=== PATIENT | male | born 1955 | race Caucasian/White ===

== ENCOUNTER 2016-12-03 23:41 | Inpatient (IN) | payer SELFPAY ==
[~2016-12-03] VITALS: Ht 177.8 cm; Wt 95.0 kg
[~2016-12-03 23:41] MED LIST: CYCL1TAB29 PO; DICL75TA PO
[2016-12-03 23:43] VITALS: O2SAT 93; O2SAT 95
[2016-12-03 23:53] VITALS: BP 45/21; PULSE 90
[2016-12-04] VITALS (34 sets, daily range): BP systolic 99–182; BP diastolic 57–107; PULSE 72–101; RESP 16–18; TEMP 97.2–99.1; O2SAT 85–100
[2016-12-04] MEDS ORDERED: EPINEPHrine HCL (1:10,000) 1 MG/10 ML SYRINGE ONE ×3 (00:06→00:16)
--- NOTE | 2016-12-04 00:57 | PD ---
HPI Chief Complaint: Code Blue Time Seen by Provider: 00:50 Travel History International Travel<30 days: No Contact w/Intl Traveler<30days: No Traveled to known affect area: No History of Present Illness HPI Patient is a 61 year old male BIBEMS after collapsing tonight. Per EMS, he was singing karaoke when he suddenly collapsed and was found to be in cardiac arrest. EMS reports that he was down 5-10 minutes prior to their arrival. They performed CPR, gave him epi and amiodarone, and defibrillated him 4 times. He regained a pulse on the way into the emergency department. Per EMS as was total down time of 30 minutes. Bystanders did not know any medical history. Patient is unresponsive and intubated, cannot provide any history. PFS Past Medical History Immunizations Current: No Social History Alcohol Use: No Tobacco Use: Yes Substance Use: No Allergies-Medications (Allergen,Severity, Reaction): Coded Allergies: Penicillin (Verified Allergy, Severe, Anaphylaxis, 09/16/16) Reported Meds & Prescriptions Reported Meds & Active Scripts Active Flexeril (Cyclobenzaprine HCl) 10 Mg Tab 10 Mg PO TID Diclofenac Sodium DR (Diclofenac Sodium) 75 Mg Tabdr 75 Mg PO BID Review of Systems ROS Limitations: Intubated, Unresponsive Physical Exam Exam Limitations: Clinical Condition Narrative GENERAL: Intubated, unresponsive SKIN: Warm and dry. HEAD: Atraumatic. Normocephalic. EYES: Pupils fixed and dilated. ENT: No nasal bleeding or discharge. Mucous membranes pink and moist. NECK: Trachea midline. No JVD. CARDIOVASCULAR: Absent pulse RESPIRATORY: Clear to auscultation. Breath sounds equal bilaterally. GASTROINTESTINAL: Abdomen soft, nondistended. MUSCULOSKELETAL: No obvious deformities. No clubbing. No cyanosis. No edema. NEUROLOGICAL: Intubated, unresponsive, no spontaneous movement. Data Data Last Documented VS Vital Signs Date Time Temp Pulse Resp B/P Pulse Ox O2 Delivery O2 Flow Rate FiO2 12/04/16 01:30 90 16 114/90 97 Ventilator 100 12/03/16 23:43 15.00 Orders Epinephrine (1:10,000) Inj (Epinephrine (12/04/16 00:00) Epinephrine (1:10,000) Inj (Epinephrine (12/04/16 00:06) Epinephrine (1:10,000) Inj (Epinephrine (12/04/16 00:16) Chest, Single Ap (12/04/16 ) Amiodarone Inj (Cordarone Inj) (12/04/16 01:15) Complete Blood Count With Diff (12/04/16 00:51) Comprehensive Metabolic Panel (12/04/16 00:51) Prothrombin Time / Inr (Pt) (12/04/16 00:51) Act Partial Throm Time (Ptt) (12/04/16 00:51) Lactic Acid Sepsis Protocol (12/04/16 00:51) Magnesium (Mg) (12/04/16 00:51) Phosphorus (Po4) (12/04/16 00:51) Ckmb (Isoenzyme) Profile (12/04/16 00:51) Troponin I (12/04/16 00:51) Urinalysis - C+S If Indicated (12/04/16 00:51) Blood Culture (12/04/16 00:51) Ecg Monitoring (12/04/16 00:51) Iv Access Insert/Monitor (12/04/16 00:51) Oximetry (12/04/16 00:51) Oxygen Administration (12/04/16 00:51) Urinary Catheter Insert/Apply (12/04/16 00:51) Ct Brain W/O Iv Contrast(Rout) (12/04/16 ) Drug Screen, Random Urine (12/04/16 00:51) Tylenol (Acetaminophen) (12/04/16 00:51) Salicylates (Aspirin) (12/04/16 00:51) Alcohol (Ethanol) (12/04/16 00:51) Norepinephrine-Dextrose Drip (Levophed-D (12/04/16 01:00) Resp Ventilation- Volume (12/04/16 ) Neurological Rass Scale Q30MX2,Q2HX4,Q4H (12/04/16 01:33) Fentanyl Drip (Fentanyl Drip) (12/04/16 01:45) Midazolam Inj (Versed Inj) (12/04/16 01:45) Neurological Rass Scale Q30MX2,Q2HX4,Q4H (12/04/16 01:33) Admit Order (Ed Use Only) (12/04/16 ) CKMB (12/04/16 01:25) CKMB% (12/04/16 01:25) Labs Laboratory Tests Test 12/04/16 12/04/16 01:25 01:35 White Blood Count 24.7 TH/MM3 Red Blood Count 4.27 MIL/MM3 Hemoglobin 13.0 GM/DL Hematocrit 39.8 % Mean Corpuscular Volume 93.2 FL Mean Corpuscular Hemoglobin 30.6 PG Mean Corpuscular Hemoglobin 32.8 % Concent Red Cell Distribution Width 13.5 % Platelet Count 212 TH/MM3 Mean Platelet Volume 8.5 FL Neutrophils (%) (Auto) 75.4 % Lymphocytes (%) (Auto) 22.1 % Monocytes (%) (Auto) 1.3 % Eosinophils (%) (Auto) 0.8 % Basophils (%) (Auto) 0.4 % Neutrophils # (Auto) 18.6 TH/MM3 Lymphocytes # (Auto) 5.5 TH/MM3 Monocytes # (Auto) 0.3 TH/MM3 Eosinophils # (Auto) 0.2 TH/MM3 Basophils # (Auto) 0.1 TH/MM3 CBC Comment AUTO DIFF Differential Total Cells 100 Counted Neutrophils % (Manual) 55 % Band Neutrophils % 13 % Lymphocytes % 26 % Monocytes % 1 % Eosinophils % 1 % Neutrophils # (Manual) 17.8 TH/MM3 Metamyelocytes 2 % Myelocytes 2 % Differential Comment FINAL DIFF MANUAL Platelet Estimate NORMAL Platelet Morphology Comment NORMAL Red Cell Morphology Comment NORMAL Prothrombin Time 11.8 SEC Prothromb Time International 1.1 RATIO Ratio Activated Partial 27.1 SEC Thromboplast Time Urine Color YELLOW Urine Turbidity HAZY Urine pH 5.5 Urine Specific Victor 1.021 Urine Protein 30 mg/dL Urine Glucose (UA) NEG mg/dL Urine Ketones NEG mg/dL Urine Occult Blood MOD Urine Nitrite NEG Urine Bilirubin NEG Urine Urobilinogen LESS THAN 2.0 MG/DL Urine Leukocyte Esterase NEG Urine RBC 12 /hpf Urine WBC 9 /hpf Urine Amorphous Sediment RARE Urine Mucus FEW /lpf Urine Sperm FEW Microscopic Urinalysis Comment CATH-CULTURE IND Sodium Level 144 MEQ/L Potassium Level 3.7 MEQ/L Chloride Level 106 MEQ/L Carbon Dioxide Level 17.8 MEQ/L Anion Gap 20 MEQ/L Blood Urea Nitrogen 20 MG/DL Creatinine 1.99 MG/DL Estimat Glomerular Filtration 35 ML/MIN Rate Random Glucose 359 MG/DL Lactic Acid Level 9.9 mmol/L Calcium Level 8.0 MG/DL Phosphorus Level 8.3 MG/DL Magnesium Level 3.6 MG/DL Total Bilirubin 0.3 MG/DL Aspartate Amino Transf 488 U/L (AST/SGOT) Alanine Aminotransferase 458 U/L (ALT/SGPT) Alkaline Phosphatase 72 U/L Total Creatine Kinase 895 U/L Creatine Kinase MB 28.7 NG/ML Creatine Kinase MB % 3.2 % Troponin I 5.28 NG/ML Total Protein 5.5 GM/DL Albumin 2.7 GM/DL Salicylates Level 3.2 MG/DL Urine Opiates Screen NEG Acetaminophen Level 2.1 MCG/ML Urine Barbiturates Screen NEG Urine Amphetamines Screen NEG Urine Benzodiazepines Screen NEG Urine Cocaine Screen NEG Urine Cannabinoids Screen POS Ethyl Alcohol Level LESS THAN 3 MG/DL Blood Gas Puncture Site LT FEMORAL Blood Gas Patient Temperature 98.6 Blood Gas HCO3 15 mmol/L Blood Gas Base Excess -10.0 mmol/L Blood Gas Oxygen Saturation 94 % Arterial Blood pH 7.28 Arterial Blood Partial 34 mmHg Pressure CO2 Arterial Blood Partial 179 mmHG Pressure O2 Arterial Blood Oxygen Content 18.6 Vol % Arterial Blood 2.6 % Carboxyhemoglobin Arterial Blood Methemoglobin 2.2 % Blood Gas Hemoglobin 13.8 G/DL Oxygen Delivery Device VENT Blood Gas Ventilator Setting VAC16/550/PEEP8 Blood Gas Inspired Oxygen 100 % [facility] Medical Decision Making Medical Screen Exam Complete: Yes Emergency Medical Condition: Yes Medical Record Reviewed: Yes Interpretation(s) ECG shows sinus rhythm with PVCs. There is ST depression in V3 through V5. No ST elevation Differential Diagnosis STEMI versus sepsis versus electrolyte abnormality versus dysrhythmia Narrative Course Patient is a 61-year-old male brought in by EMS after suffering cardiac arrest. Patient had a sudden collapse witnessed at a bar, 5-10 minutes prior to EMS arrival. He was in V. fib arrest the entire time. He received 4 different ablations, 6 doses of epinephrine as well as 2 doses of amiodarone, as well as 100 mEq of bicarbonate by EMS. Pulses returned on the way into the emergency department, this was about 30 minutes after his a initial arrest. As patient was being transferred to the bed, he lost his pulse again. CPR was immediately resumed, lucas patient was in V. fib arrest, defibrillator was charged and patient was defibrillated. ACLS protocols were continued. Patient was given 7 doses of epinephrine and remained in V. tach/V. fib. He also received 1 g of calcium, 2 g of magnesium, an amp of bicarbonate. He he was defibrillated 4 times with return of pulse at 11:59 PM, 16 minutes after he lost pulses were the second time. At 0001 he lost his pulse for the third time. Again he was in V. fib, CPR was begun as a defibrillator was charged. He was shocked immediately and ACLS was continued. Patient received another 6 doses of epinephrine and was defibrillated and additional 5 times as he was in V. fib. He regained pulses 16 minutes later at 0017. He was immediately started on the Levaquin drip as well as an amiodarone drip. Central line is started in the right IJ. Patient was intubated by EMS, tube was confirmed to be in the right place. Labs sent show no elevated troponin, lactic acid is 9.9. OG tube was placed. Patient appeared to have coffee-ground emesis through the OG tube, which then turned to red blood. He was started on Protonix. CT of the head was ordered. Patient covered with cefepime and vancomycin. Dr. Taylor of cardiology consulted. Patient admitted to the ICU for further management. Critical Care Narrative Aggregate critical care time was 60 minutes. Time to perform other separately billable procedures was not included in the critical care time. My time did not include minutes spent treating any other patients simultaneously or on activities that did not directly contribute to the patient's treatment. The services I provided to this patient were to treat and/or prevent clinically significant deterioration that could result in: Serious illness or I provided critical care services requiring my management, as noted below: Chart data review, documentation time, medication orders and management, vital sign assessments/reviewing monitor data, ordering and reviewing lab tests, ordering and interpreting/reviewing x-rays and diagnostic studies, care of the patient and discussion of the patient with the admitting physicians. Procedures Procedure Narrative CENTRAL VENOUS LINE: The site was prepped with Betadine and sterilely draped. It was infiltrated with 1% lidocaine plain. The deep vein was cannulated using normal Seldinger technique. A triple lumen central line was placed in the right internal jugular site and secured with simple interrupted suture. The site was sterilely dressed. The patient tolerated the procedure well. Diagnosis Primary Impression: Cardiac arrest Admitting Information Admitting Physician Requests: it Adela Kelly MD Dec 04, 2016 00:57
[2016-12-04] MEDS ORDERED: NOREPINEPHRINE-DEXTROSE DRIP 250 ML IV SCH (01:00)
[2016-12-04] MEDS ORDERED: AMIODARONE INJ 450 MG in DEXTROSE 5% IN WATE(EXCEL) INJ 250 ML IV SCH ×2 (01:15)
[2016-12-04 01:39] LABS: AUTOMATED NEUTROPHIL # 18.6 TH/MM3 (1.8-7.7); BASOPHIL # 0.1 TH/MM3 (0-0.2); BASOPHIL % 0.4 % (0.0-2.0); EOSINOPHIL # 0.2 TH/MM3 (0-0.4); EOSINOPHIL % 0.8 % (0.0-4.0); HEMATOCRIT 39.8 % (39.0-51.0); LYMPH % 22.1 % (9.0-44.0); LYMPHOCYTE # 5.5 TH/MM3 (1.0-4.8); MEAN CELL VOLUME 93.2 FL (80.0-100.0); MEAN CORPUSCULAR HEMOGLOBIN 30.6 PG (27.0-34.0); MEAN CORPUSCULAR HGB CONC 32.8 % (32.0-36.0); MONO % 1.3 % (0.0-8.0); NEUT % 75.4 % (16.0-70.0); PLATELET COUNT 212 TH/MM3 (150-450); RED BLOOD COUNT 4.27 MIL/MM3 (4.50-5.90); RED CELL DISTRIBUTION WIDTH 13.5 % (11.6-17.2); WHITE BLOOD COUNT 24.7 TH/MM3 (4.0-11.0)
[2016-12-04 01:43] LABS: HEMO FLAGS AUTO DIFF
--- NOTE | 2016-12-04 01:43 | RADRPT ---
EXAM DATE/TIME: 12/04/2016 00:56 [facility] COMPARISON: No previous studies available for comparison. INDICATIONS : Cardiac alert. Unresponsive. MEDICAL HISTORY : None. SURGICAL HISTORY : None. ENCOUNTER: Initial ACUITY: 1 day PAIN SCORE: Non-responsive. LOCATION: Bilateral chest FINDINGS: Right central line tip in superior vena cava. Endotracheal tube in satisfactory position. NG enters s tomach. Minimal basilar dependent airspace disease in lungs. No effusion. No pneumothorax. CONCLUSION: 1. Support apparatus in satisfactory position. Probable dependent atelectasis in the lungs. Chris Medeiros MD on December 04, 2016 at 1:39 Board Certified Radiologist. This report was verified electronically.
[2016-12-04] MEDS ORDERED: fentaNYL DRIP 250 ML IV SCH ×3 (01:45→07:30)
[2016-12-04] MEDS ORDERED: MIDAZOLAM 100 MG/ML INJ 100 ML IV SCH ×2 (01:45→07:30)
[2016-12-04 01:51] LABS: BLOOD, URINE MOD (NEG); GLUCOSE,URINE NEG (NEG); KETONE, URINE NEG (NEG); MUCUS URINE FEW /lpf (OCC); NITRITE,URINE NEG (NEG); PH, URINE 5.5 (5.0-8.5); URINE COLOR YELLOW (YELLW/STRAW)
[2016-12-04 01:52] LABS: COMMENT (UR) CATH-CULTURE IND; CULTURE IF INDICATED CATH CULTURE IND
[2016-12-04 01:53] LABS: APTT (PATIENT) 27.1 SEC (24.3-30.1); INTERNATIONAL NORMALIZED RATIO 1.1 RATIO; PROTHROMBIN TIME - PATIENT 11.8 SEC (9.8-11.6)
[2016-12-04 01:58] LABS: AMPHETAMINE, URINE NEG (NEG); BARBITURATES, URINE NEG (NEG); COCAINE, URINE NEG (NEG)
[2016-12-04] MEDS ORDERED: MIDAZOLAM HCL 5 MG/ML VIAL (1 ML) ONE (01:59)
[2016-12-04 02:09] LABS: BANDS 13 % (0-6); EOSINOPHILS 1 % (0-4); METAMYELOCYTES 2 % (0-1); MYELOCYTES 2 % (0-0); NEUTROPHIL # MANUAL DIFF 17.8 TH/MM3 (1.8-7.7); POLYS (SEG NEUTROPHILS) 55 % (16-70); SCAN/DIFF FINAL DIFF MANUAL; WBC DIFF SAMPLE 100
[2016-12-04 02:10] LABS: PLATELET ESTIMATE SMEAR NORMAL (NORMAL); PLATELET MORPHOLOGY NORMAL (NORMAL)
[2016-12-04 02:27] LABS: ACETAMINOPHEN 2.1 MCG/ML (10.0-30.0); ALKALINE PHOSPHATASE 72 U/L (45-117); ALT (GPT) 458 U/L (12-78); ANION GAP 20 MEQ/L (5-15); AST (GOT) 488 U/L (15-37); BICARBONATE 17.8 MEQ/L (21.0-32.0); BLOOD UREA NITROGEN 20 MG/DL (7-18); CHLORIDE 106 MEQ/L (98-107); CREATINE KINASE 895 U/L (39-308); GLOMERULAR FILTRATION RATE 35 ML/MIN (>89); MAGNESIUM 3.6 MG/DL (1.5-2.5); POTASSIUM 3.7 MEQ/L (3.5-5.1); SODIUM (NA) 144 MEQ/L (136-145); TOTAL BILIRUBIN ADULT 0.3 MG/DL (0.2-1.0)
[2016-12-04 02:41] LABS: CKMB 28.7 NG/ML (0.5-3.6)
[2016-12-04] MEDS ORDERED: PANTOPRAZOLE INJ 80 MG in SODIUM CHLORIDE 0.9% INJ 35 ML IV ONE (03:00)
[2016-12-04] MEDS ORDERED: PANTOPRAZOLE INJ 80 MG in SODIUM CHLORIDE 0.9% INJ 100 ML IV SCH (03:00)
[2016-12-04] MEDS ORDERED: MIDAZOLAM HCL 2 MG/2 ML VIAL IV PUSH ONE (03:00)
[2016-12-04] MEDS ORDERED: VANCOMYCIN INJ 1,000 MG in SODIUM CHLOR 0.9% 250 ML INJ 250 ML IV ONE (03:30)
[2016-12-04] MEDS ORDERED: CEFEPIME INJ 1,000 MG in SODIUM CHLORIDE 0.9% INJ 100 ML IV ONE (03:30)
[2016-12-04 03:34] LABS: LACTIC ACID GHOST NOT REPORTABLE
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
[2016-12-04] MEDS ORDERED: ASPIRIN 300 MG SUPP RECTAL ONE (04:15)
[2016-12-04] MEDS ORDERED: SODIUM CHLOR 0.9% 1000 ML INJ 1,000 ML IV SCH (04:32)
[2016-12-04] MEDS ORDERED: MISCELLANEOUS NURSING INFORMATION XX SCH ×2 (04:45→07:30)
[2016-12-04] MEDS ORDERED: ACETAMINOPHEN 325 MG TAB PO PRN (04:45)
[2016-12-04] MEDS ORDERED: RESP: ALBUTEROL 2.5 MG/3 ML NEB (PRN) INH (04:45)
[2016-12-04] MEDS ORDERED: GLUCAGON 1 MG/ML VIAL OTHER PRN (04:45)
[2016-12-04] MEDS ORDERED: SENNOSIDES SYRUP 8.8 MG/5 ML CUP G-TUBE PRN (04:45)
[2016-12-04] MEDS ORDERED: ONDANSETRON HCL 4 MG/2 ML VIAL IV PRN (04:45)
[2016-12-04] MEDS ORDERED: DEXTROSE 50% IN WATER 50 ML VIAL(D50) IV PUSH PRN (04:45)
[2016-12-04] MEDS ORDERED: AMIODARONE INJ 900 MG in D5W 500 ML (EXCEL BAG) 482 ML IV SCH (04:45)
[2016-12-04] MEDS ORDERED: INSULIN ASPART SUPPLEMENTAL SCALE SQ SCH (04:45)
[2016-12-04] MEDS ORDERED: SODIUM CHLORIDE 0.9% FLUSH 5 ML FLUSH IV FLUSH PRN (04:45)
[2016-12-04] MEDS ORDERED: CHLORHEXIDINE GLUCONATE 2 % 1 PACK (2 CLOTHS) TOP PRN ×2 (04:45→07:30)
--- NOTE | 2016-12-04 04:46 | HHI.HP ---
HPI Service Critical Care Medicine Primary Care Physician Unknown Admission Diagnosis Cardiac arrest Diagnosis: Travel History International Travel<30 Days: No Contact w/Intl Traveler <30 Da: No Traveled to Known Affected Are: No History of Present Illness 61 yo WM with no significant past medical history who presented to [facility] emergency department following V. fib cardiac arrest. He had been at a karaoke bar when he collapsed. It is unclear whether bystander CPR was initiated. 911 was contacted and [facility] arrived within 5-10 minutes. He was in V. fib. He was defibrillated 4, received 6 amps of epi, amiodarone 2 doses, 100 Meq of bicarbonate. Intubated by [facility]. He had ROSC. He lost pulses shortly after arrival to the emergency department. He received epi x7, 1 g Calcium chloride, 2 gram magnesium, 1 amp bicarb, 6 epi and was defibrillated x5 with ROSC. He was started on levophed for shock and amiodarone drip. Since initiation of amiodarone drip, he was been in sinus rhythm with pulse.. On levophed 7.5 mcg/min with MAP in 70s. He has been sedated with fentanyl 50 mcg/hr and Versed 3 mg/hr but when this is held he is localizing with BUE, spontaneously moving legs, has reactive pupils, overbreathing vent, + cough. Daughter states no known cardiac history. Past Family Social History Allergies: Coded Allergies: Penicillin (Verified Allergy, Severe, Anaphylaxis, 09/16/16) Past Medical History Cervical radiculopathy Daughter reports no prior cardiac history. No prior cardiac catheter or stress test. Past Surgical History None Reported Medications Flexeril 10 mg by mouth 3 times a day Diclofenac 75 mg by mouth twice a day Family History Daughter states she is unaware of any family medical history of coronary artery disease Social History He is a former smoker but quit about 20 years ago according to his daughter. She is uncertain for how long or how much he smokes Occasionally drinks alcohol Urine drug screen positive for marijuana Physical Exam Vital Signs Vital Signs Date Time Temp Pulse Resp B/P Pulse Ox O2 Delivery O2 Flow Rate FiO2 12/04/16 04:02 98.4 91 16 147/91 100 Ventilator 100 12/04/16 03:53 100 50 12/04/16 03:25 100 100 12/04/16 02:34 97.5 88 16 135/82 100 Ventilator 12/04/16 02:29 97.2 80 16 139/87 98 Ventilator 100 12/04/16 02:27 16 100 Ventilator 100 12/04/16 02:26 100 Ventilator 100 12/04/16 02:24 90 16 128/67 Ventilator 100 12/04/16 02:21 86 16 118/71 100 Ventilator 100 12/04/16 02:19 82 16 126/97 100 Ventilator 100 12/04/16 02:09 80 16 102/57 93 Ventilator 100 12/04/16 02:06 101 16 99/65 99 Ventilator 100 12/04/16 02:00 101 16 118/75 Ventilator 100 12/04/16 01:51 101 16 182/106 97 Ventilator 100 12/04/16 01:30 90 16 114/90 97 Ventilator 100 12/04/16 01:19 84 16 123/71 99 Ventilator 100 12/04/16 01:14 92 16 131/62 100 Ventilator 100 12/04/16 01:09 88 16 125/107 99 Ventilator 100 12/04/16 01:04 88 16 114/88 99 Ventilator 100 12/04/16 00:59 86 16 125/104 99 Ventilator 100 12/04/16 00:54 86 16 107/78 99 Ventilator 100 12/04/16 00:49 88 16 99/73 99 Ventilator 100 12/04/16 00:44 88 16 102/67 99 Ventilator 100 12/04/16 00:39 92 16 107/71 Ventilator 100 12/04/16 00:34 90 16 111/78 94 Ventilator 100 12/04/16 00:29 90 16 131/78 92 Ventilator 100 12/04/16 00:24 101 16 125/90 93 Ventilator 100 12/04/16 00:23 91 16 162/99 93 Ventilator 12/04/16 00:17 96 16 162/99 91 Ventilator 12/04/16 00:08 96 16 136/89 85 Ventilator 12/03/16 23:53 90 45/21 12/03/16 23:43 95 100 12/03/16 23:43 18 12/03/16 23:43 93 15.00 100 Physical Exam Temp 97.5 Blood pressure 126/88 pulse 84 sinus rhythm sats 97% on mechanical ventilation\\drips: Drips: Versed 3 g/h Fentanyl 50 g per hour Amiodarone 1 mg/h Norepinephrine 7.5 mg/m GENERAL: Well-nourished, well-developed patient male who is orotracheally intubated SKIN: Warm and dry. Abrasions over chest. HEAD: Atraumatic. Normocephalic. EYES: Pupils equal and round, 3mm and reactive to 2 mm bilaterally. No scleral icterus. No injection or drainage. ENT: No nasal bleeding or discharge. Mucous membranes pink and moist. NECK: Trachea midline. No JVD. CARDIOVASCULAR: Regular rate and rhythm, sinus rhythm . No murmurs rubs or gallops. RESPIRATORY: No accessory muscle use. Clear to auscultation. Breath sounds equal bilaterally. OVerbreathing vent. GASTROINTESTINAL: Abdomen soft, non-tender, nondistended. Hypoactive bowel sounds. : Amaya with parker urine output Rectal - +brown stool No mass. MUSCULOSKELETAL: Extremities without clubbing, cyanosis, or edema. . NEUROLOGICAL: Sedation held. Eyes don't fully open to deep noxious stimuli. + facial grimace. Localizes with bilateral UE. Withdraws bilateral lower extremities and occasionally spontaneously moves bilateral lower extremities. No response to Babinski. Laboratory Laboratory Tests Test 12/04/16 01:25 White Blood Count 24.7 Red Blood Count 4.27 Hemoglobin 13.0 Hematocrit 39.8 Mean Corpuscular Volume 93.2 Mean Corpuscular Hemoglobin 30.6 Mean Corpuscular Hemoglobin 32.8 Concent Red Cell Distribution Width 13.5 Platelet Count 212 Mean Platelet Volume 8.5 Neutrophils (%) (Auto) 75.4 Lymphocytes (%) (Auto) 22.1 Monocytes (%) (Auto) 1.3 Eosinophils (%) (Auto) 0.8 Basophils (%) (Auto) 0.4 Neutrophils # (Auto) 18.6 Lymphocytes # (Auto) 5.5 Monocytes # (Auto) 0.3 Eosinophils # (Auto) 0.2 Basophils # (Auto) 0.1 CBC Comment AUTO DIFF Differential Total Cells 100 Counted Neutrophils % (Manual) 55 Band Neutrophils % 13 Lymphocytes % 26 Monocytes % 1 Eosinophils % 1 Neutrophils # (Manual) 17.8 Metamyelocytes 2 Myelocytes 2 Differential Comment FINAL DIFF MANUAL Platelet Estimate NORMAL Platelet Morphology Comment NORMAL Red Cell Morphology Comment NORMAL Prothrombin Time 11.8 Prothromb Time International 1.1 Ratio Activated Partial 27.1 Thromboplast Time Urine Color YELLOW Urine Turbidity HAZY Urine pH 5.5 Urine Specific Hubbard 1.021 Urine Protein 30 Urine Glucose (UA) NEG Urine Ketones NEG Urine Occult Blood MOD Urine Nitrite NEG Urine Bilirubin NEG Urine Urobilinogen LESS THAN 2.0 Urine Leukocyte Esterase NEG Urine RBC 12 Urine WBC 9 Urine Amorphous Sediment RARE Urine Mucus FEW Urine Sperm FEW Microscopic Urinalysis Comment CATH-CULTURE IND Sodium Level 144 Potassium Level 3.7 Chloride Level 106 Carbon Dioxide Level 17.8 Anion Gap 20 Blood Urea Nitrogen 20 Creatinine 1.99 Estimat Glomerular Filtration 35 Rate Random Glucose 359 Lactic Acid Level 9.9 Calcium Level 8.0 Phosphorus Level 8.3 Magnesium Level 3.6 Total Bilirubin 0.3 Aspartate Amino Transf 488 (AST/SGOT) Alanine Aminotransferase 458 (ALT/SGPT) Alkaline Phosphatase 72 Total Creatine Kinase 895 Creatine Kinase MB 28.7 Creatine Kinase MB % 3.2 Troponin I 5.28 Total Protein 5.5 Albumin 2.7 Salicylates Level 3.2 Urine Opiates Screen NEG Acetaminophen Level 2.1 Urine Barbiturates Screen NEG Urine Amphetamines Screen NEG Urine Benzodiazepines Screen NEG Urine Cocaine Screen NEG Urine Cannabinoids Screen POS Ethyl Alcohol Level LESS THAN 3 Date/Time Procedure Status Source Growth 12/04/16 01:25 Urine Culture Worksheet Urine Catheterized Urine Pending 12/04/16 01:25 Aerobic Blood Culture Received Blood Peripheral Pending 12/04/16 01:25 Anaerobic Blood Culture Received Blood Peripheral Pending Result Diagram: 12/04/16 0125 12/04/16 0125 Assessment and Plan Assessment and Plan NEURO: Acute encephalopathy status post V. fib cardiac arrest Marijuana use Fentanyl for sedation Patient is localizing but not following commands. Brainstem reflexes are intact. Based on witnessed v fib arrest it appears in this patient's best interest to proceed with induced therapeutic hypothermia .. I discussed this with his daughter who is consented. Placed L femoral heat exchange catheter. Target temp 24-36 C. Fentanyl/versed for sedation. Nimbex for shivering for induced therapeutic hypothermia. RESP: Acute respiratory failure Prior history of tobacco abuse PRVC TV 550 R 16 PEEP 8 FIO2 50%. Wean FIO2 for sat> greater than 92% DuoNeb every 6 hours. Albuterol every 2 hours when necessary CV: V. fib cardiac arrest NSTEMI Cardiogenic shock with multiorgan dysfunction Amiodarone drip 1 mg/h for 6 hours and 0.5 mg per hour. ED physician discussed with cardiology, Dr. Taylor. Initial EKG concerning for ST deviation in lead III and lateral depression. Obtained EKG that was improved. Stat Echo this morning Not a candidate for beta aneta due to shock Given aspirin [address] Some coffee grounds in OGT on placement. Place to [facility] upon arrival to [facility] and coffee grounds cleared. Stool brown on rectal. Repeat Hgb stable. Will initiate heparin drip. Cardiology consulted. I discussed with Dr. Taylor regarding cardiac catheterization, states will evaluate today and determine timing of cardiac cath ,. GI: Ischemic hepatopathy Trend LFTs Nothing by mouth OG tube to low intermittent wall suction Started on Protonix drip in the emergency department due to coffee ground material in OG tube. OGT is clearing, may have been secondary to blood in oropharyx on insertion. FEN/RENAL: Acute kidney injury Amaya in place. Monitor intake and output. Monitor electrolytes and replace as on an as-needed basis. ID: Leukocytosis Urinalysis with 9 white blood cells +RBC. Urine Culture pending. Follow up blood culture Reported history of anaphylaxis to penicillin. Resume cefepime in the emergency department without evidence of reaction. Will place on aztreonam 1 g IV every 8 for UTI/aspiration. HEME: Monitor CBC ENDO: Acute hyperglycemia without known history of diabetes Low-dose insulin sliding scale at bedside glucose every 4 hours. Check Hgb A1c. Check TSH PROPH: On Protonix drip which will provide stress ulcer prophylaxis. SCDs for DVT prophylaxis. Heparin drip as per above ACCESS: Right IJ central venous line placed by ED physician 12/04/16. Left femoral art line placed 12/04/16 #1. Left femoral heat exchange catheter placed #1 I have updated patient's daughter Miley Jimenez over the telephone. She indicates he is FULL CODE Discussed with Dr. Kelly, discussed with ED RN, IMC Charge, IMC RN, oncoming [employer], Dr. Taylor. CCT 90 minutes exclusive separately billable procedures. Shruthi Elizalde MD Dec 04, 2016 04:46
[2016-12-04] MEDS ORDERED: AZTREONAM INJ 1,000 MG in SODIUM CHLORIDE 0.9% INJ 100 ML IV SCH (05:00)
[2016-12-04 05:16] LABS: BLOOD GAS CARBOXYHEMOGLOBIN 2.6 % (0-4); BLOOD GAS HCO3 15 mmol/L (22-26); BLOOD GAS METHEMOGLOBIN 2.2 % (0-2); BLOOD GAS O2 HGB SATURATION 94 % (90-100); BLOOD GAS OXYGEN CONTENT 18.6 Vol % (12.0-20.0); BLOOD GAS PCO2 34 mmHg (38-42); BLOOD GAS PO2 179 mmHG (61-120); BLOOD GAS TOTAL HGB 13.8 G/DL (12.0-16.0); TEMP CORR TO 98.6
[2016-12-04 05:17] LABS: CRITICAL VALUE YES; OXYGEN DEVICE VENT; VENT SETTINGS VAC16/550/PEEP8
[2016-12-04 05:18] LABS: DRAW SITE LT FEMORAL; FIO2 100 %; NUMBER OF ARTERIAL PUNCTURES 1; STAT YES; ULNAR PULSE PRESENT
[2016-12-04 05:18] LABS: HEMATOCRIT 42.5 % (39.0-51.0); MEAN CELL VOLUME 91.7 FL (80.0-100.0); MEAN CORPUSCULAR HEMOGLOBIN 30.5 PG (27.0-34.0); MEAN CORPUSCULAR HGB CONC 33.2 % (32.0-36.0); PLATELET COUNT 244 TH/MM3 (150-450); RED BLOOD COUNT 4.64 MIL/MM3 (4.50-5.90); RED CELL DISTRIBUTION WIDTH 13.4 % (11.6-17.2); REVIEW FLAG FINAL; WHITE BLOOD COUNT 26.4 TH/MM3 (4.0-11.0)
[2016-12-04 05:20] LABS: BLOOD GAS BASE EXCESS -6.6 mmol/L (-2-2); BLOOD GAS CARBOXYHEMOGLOBIN 1.8 % (0-4); BLOOD GAS HCO3 18 mmol/L (22-26); BLOOD GAS METHEMOGLOBIN 2.4 % (0-2); BLOOD GAS O2 HGB SATURATION 82 % (90-100); BLOOD GAS OXYGEN CONTENT 17.3 Vol % (12.0-20.0); BLOOD GAS PCO2 37 mmHg (38-42); BLOOD GAS PO2 55 mmHG (61-120); BLOOD GAS TOTAL HGB 15.1 G/DL (12.0-16.0); TEMP CORR TO 98.6
[2016-12-04 05:21] LABS: CRITICAL VALUE YES; DRAW SITE LT RADIAL; FIO2 50 %; NUMBER OF ARTERIAL PUNCTURES 1; OXYGEN DEVICE VENTILATOR; STAT NO; VENT SETTINGS 16/550/PEEP8
[2016-12-04] MEDS ORDERED: CISATRACURIUM BESYLATE 20 MG/10 ML VIAL IVP ONE (07:30)
[2016-12-04] MEDS ORDERED: MIDAZOLAM HCL 2 MG/2 ML VIAL IV ONE (07:30)
[2016-12-04] MEDS ORDERED: ACETAMINOPHEN 650 MG/20.3 ML UDC NG PRN (07:30)
[2016-12-04] MEDS ORDERED: HEPARIN-D5W INJ 250 ML IV SCH (07:30)
[2016-12-04] MEDS ORDERED: LORazepam 2 MG/ML VIAL IV PRN (07:30)
[2016-12-04] MEDS ORDERED: MEPERIDINE HCL 25 MG/ML VIAL IVP PRN (07:30)
[2016-12-04] MEDS ORDERED: SODIUM CHLORIDE 0.9% FLUSH 5 ML FLUSH IVF PRN (07:30)
[2016-12-04] MEDS ORDERED: ARTIFICIAL TEARS OPTH OINT 3.5 APPLIC/3.5 GM TUBO EACH EYE PRN (07:30)
[2016-12-04] MEDS ORDERED: HEPARIN SODIUM - IV 10,000 UNITS/10 ML VIAL IV ONE (07:30)
[2016-12-04] MEDS ORDERED: AMIODARONE INJ 450 MG in SODIUM CHLOR 0.9% (EXCEL) INJ 250 ML IV SCH (07:45)
[2016-12-04] MEDS ORDERED: HEPARIN INJ 25,000 UNITS in SODIUM CHLOR 0.9% 250 ML INJ 247.5 ML IV SCH (07:45)
[2016-12-04] MEDS ORDERED: CHLORHEXIDINE 0.12% (ORAL KIT) 15 ML CUP MT SCH (08:00)
[2016-12-04] MEDS ORDERED: CISATRACURIUM INJ 100 MG in SODIUM CHLOR 0.9% 250 ML INJ 240 ML IV SCH (08:00)
[2016-12-04] MEDS ORDERED: NOREPINEPHRINE INJ 4 MG in SODIUM CHLOR 0.9% 250 ML INJ 246 ML IV SCH (08:00)
--- NOTE | 2016-12-04 08:08 | PD.PROCEDR ---
Procedure Note Procedure DATE: 12/04/16 procedure performed at 0500 PROCEDURE: Left femoral arterial catheter placement INDICATION: Shock, need for hemodynamic monitoring DETAILS OF PROCEDURE The patient was placed in supine position. The skin was cleansed with Chloraprep 4. Additional barrier precautions included large sterile drape, sterile gloves, sterile gown, face mask, and hat. 1% lidocaine was used for local anesthesia. Under direct ultrasound guidance and on the first attempt, the left common femoral artery was accessed with an introducer needle. The guide wire was advanced. Using Seldinger technique 20 gauge arterial catheter was placed. The guide wire was removed. The catheter was connected to a transducer line and flushed with saline. The video monitor displayed normal arterial wave forms. The catheter was secured with 2-0 silk. A sterile dressing with antibiotic disc was applied. ESTIMATED BLOOD LOSS: minimal COMPLICATIONS: None Shruthi Elizalde MD Dec 04, 2016 08:08
--- NOTE | 2016-12-04 08:09 | PD.PROCEDR ---
Procedure Note Procedure DATE: 12/03/16 Heat Exchange Catheter Placement: Left femoral vein. Procedure immediately followed placement of L femoral art line that began at 05:00 INDICATION: Induced therapeutic hypothermia. CONSENT Informed consent for procedure was obtained from patient's daughter after discussion of risks, benefits, alternatives. DESCRIPTION OF THE PROCEDURE The patient was placed in supine position. The skin was cleansed with Chloraprep x3. Additional barrier precautions included large sterile drape, sterile gloves, sterile gown, face mask, and hat. 1 % lidocaine was used for local anesthesia. On a single attempt, the vein was accessed with an introducer needle. The guide wire was advanced and the tract was dilated. Using Seldinger technique a 9.3 [place] T3 Searchl Quattro Heat Exchange catheter was advanced. The guide wire was removed. All ports had good return of dark venous blood and flushed easily with saline. The central line was secured with 2.0 silk. A sterile dressing with antibiotic disc was applied. ESTIMATED BLOOD LOSS: Minimal COMPLICATIONS: No apparent complications. Shruthi Elizalde MD Dec 04, 2016 08:09
[2016-12-04 08:34] LABS: APTT (PATIENT) 23.9 SEC (24.3-30.1); INTERNATIONAL NORMALIZED RATIO 1.1 RATIO
[2016-12-04] MEDS ORDERED: SODIUM CHLORIDE 0.9% FLUSH 5 ML FLUSH IVF SCH (09:00)
[2016-12-04] MEDS ORDERED: DOCUSATE SODIUM 100 MG CAP TUBE SCH (09:00)
[2016-12-04] MEDS ORDERED: SODIUM CHLORIDE 0.9% FLUSH 5 ML FLUSH IV FLUSH SCH (09:00)
[2016-12-04] MEDS ORDERED: PANTOPRAZOLE SODIUM 40 MG VIAL IV SCH (09:00)
[2016-12-04 09:24] LABS: BLOOD GAS BASE EXCESS -9.8 mmol/L (-2-2); BLOOD GAS HCO3 15 mmol/L (22-26); BLOOD GAS METHEMOGLOBIN 1.1 % (0-2); BLOOD GAS O2 HGB SATURATION 91 % (90-100); BLOOD GAS OXYGEN CONTENT 14.7 Vol % (12.0-20.0); BLOOD GAS PCO2 29 mmHg (38-42); BLOOD GAS PO2 72 mmHg (61-120); BLOOD GAS TOTAL HGB 11.4 G/DL (12.0-16.0); CRITICAL VALUE YES; FIO2 100 %; LITER FLOW 15 L/M; OXYGEN DEVICE AMBU; TEMP CORR TO 98.6
[2016-12-04 09:25] LABS: DRAW SITE ART LINE; NUMBER OF ARTERIAL PUNCTURES 0; STAT YES; ULNAR PULSE PRESENT
[2016-12-04] MEDS ORDERED: SODIUM BICARBONATE 8.4% INJ 50 MEQ/50 ML SYR ONE ×2 (09:29→09:34)
[2016-12-04] MEDS ORDERED: CALCIUM CHLORIDE 10% SOLN 1 GRAM/10 ML SYR IV ONE ×2 (09:43)
[2016-12-04] MEDS ORDERED: NOREPINEPHRINE 4 MG/4 ML AMP IV ONE (09:43)
[2016-12-04] MEDS ORDERED: MAGNESIUM SULFATE 40 MEQ/10 ML VIAL IV ONE (09:43)
[2016-12-04] MEDS ORDERED: AMIODARONE HCL 150 MG/3 ML VIAL IV ONE (09:43)
[2016-12-04] MEDS ORDERED: EPINEPHrine HCL (1:1000) 30 MG/30 ML VIAL IV ONE (09:43)
[2016-12-04] MEDS ORDERED: EPINEPHrine HCL (1:10,000) 1 MG/10 ML SYRINGE IV ONE ×2 (09:43)
[2016-12-04] MEDS ORDERED: SODIUM BICARBONATE 8.4% INJ 50 MEQ/50 ML SYR IV ONE ×2 (09:43)
[2016-12-04 09:45] LABS: AUTOMATED NEUTROPHIL # 24.9 TH/MM3 (1.8-7.7); BASOPHIL # 0.1 TH/MM3 (0-0.2); BASOPHIL % 0.3 % (0.0-2.0); EOSINOPHIL % 0.1 % (0.0-4.0); HEMATOCRIT 40.1 % (39.0-51.0); LYMPHOCYTE # 2.7 TH/MM3 (1.0-4.8); MEAN CORPUSCULAR HEMOGLOBIN 30.2 PG (27.0-34.0); MEAN CORPUSCULAR HGB CONC 32.8 % (32.0-36.0); NEUT % 82.6 % (16.0-70.0); PLATELET COUNT 181 TH/MM3 (150-450); RED BLOOD COUNT 4.36 MIL/MM3 (4.50-5.90); WHITE BLOOD COUNT 30.2 TH/MM3 (4.0-11.0)
[2016-12-04 09:51] LABS: HEMO FLAGS AUTO DIFF
[2016-12-04 09:53] LABS: APTT (PATIENT) 26.1 SEC (24.3-30.1); INTERNATIONAL NORMALIZED RATIO 1.2 RATIO; PROTHROMBIN TIME - PATIENT 12.9 SEC (9.8-11.6)
[2016-12-04 09:55] LABS: BICARBONATE 23.7 MEQ/L (21.0-32.0); MAGNESIUM 2.9 MG/DL (1.5-2.5); POTASSIUM 3.4 MEQ/L (3.5-5.1)
[2016-12-04] MEDS ORDERED: RESP: ALBUTEROL 2.5 MG/IPRATROPIUM 0.5 MG NEB (SCH) INH (10:00)
[2016-12-04 10:02] LABS: BICARBONATE 22.9 MEQ/L (21.0-32.0); MAGNESIUM 2.8 MG/DL (1.5-2.5); POTASSIUM 3.5 MEQ/L (3.5-5.1)
[2016-12-04 10:26] LABS: BLOOD GAS BASE EXCESS 3.6 mmol/L (-2-2); BLOOD GAS CARBOXYHEMOGLOBIN 1.2 % (0-4); BLOOD GAS HCO3 28 mmol/L (22-26); BLOOD GAS O2 HGB SATURATION 91 % (90-100); BLOOD GAS OXYGEN CONTENT 16.1 Vol % (12.0-20.0); BLOOD GAS PCO2 41 mmHg (38-42); BLOOD GAS PO2 65 mmHg (61-120); BLOOD GAS TOTAL HGB 12.5 G/DL (12.0-16.0); TEMP CORR TO 98.6
[2016-12-04 10:27] LABS: CRITICAL VALUE NO; FIO2 100 %; LITER FLOW 12 L/M; OXYGEN DEVICE AMBU
[2016-12-04 10:28] LABS: DRAW SITE ART LINE; STAT YES
[2016-12-04 10:36] LABS: BANDS 17 % (0-6); NEUTROPHIL # MANUAL DIFF 24.5 TH/MM3 (1.8-7.7); POLYS (SEG NEUTROPHILS) 64 % (16-70); WBC DIFF SAMPLE 100
[2016-12-04 10:37] LABS: PLATELET ESTIMATE SMEAR NORMAL (NORMAL); PLATELET MORPHOLOGY NORMAL (NORMAL); SCAN/DIFF FINAL DIFF MANUAL
[2016-12-04] MEDS ORDERED: HEPARIN SODIUM - IV 10,000 UNITS/10 ML VIAL IV PRN ×2 (13:30)
[2016-12-04] MEDS ORDERED: CEFEPIME INJ 2,000 MG in SODIUM CHLORIDE 0.9% INJ 100 ML IV SCH (16:00)
--- NOTE | 2016-12-04 23:42 | EKG ---
Date Performed: 12/04/2016 Time Performed: 04:02:18 PTAGE: 61 years EKG: Sinus rhythm NONSPECIFIC ST & T-WAVE ABNORMALITY ABNORMAL ECG PREVIOUS TRACING : 12/04/2016 00.24 Compared to prior tracing no significant change DOCTOR: Geronimo Tyson Interpretating Date/Time 12/04/2016 23:42:09
--- NOTE | 2016-12-04 23:45 | EKG ---
Date Performed: 12/04/2016 Time Performed: 00:24:26 PTAGE: 61 years EKG: Sinus rhythm WITH OCCASIONAL VENTRICULAR PREMATURE COMPLEXES BORDERLINE RIGHT AXIS DEVIATION ST DEVIATION AND MOD ERATE T-WAVE ABNORMALITY, CONSIDER INFERIOR ISCHEMIA ABNORMAL ECG NO PREVIOUS TRACING DOCTOR: Geronimo Tyson Interpretating Date/Time 12/04/2016 23:44:15
[2016-12-05] MEDS ORDERED: CHLORHEXIDINE GLUCONATE 2 % 1 PACK (2 CLOTHS) TOP SCH ×2 (04:00)
[2016-12-08 19:01] LABS: ULNAR PULSE PRESENT
--- NOTE | 2017-01-11 01:55 | HHI.DS ---
Summary Note Date of : Dec 04, 2016 Time Of : 943 Admission Date Dec 04, 2016 at 01:36 Admitting Diagnosis Cardiac arrest Diagnosis at Time of : (1) Cardiac arrest ICD Code: I46.9 Diagnosis: Principal (2) PRIYANKA (acute kidney injury) ICD Code: N17.9 Diagnosis: Secondary (3) NSTEMI (non-ST elevated myocardial infarction) ICD Code: I21.4 Diagnosis: Principal (4) Ischemic hepatitis ICD Code: K75.9 Diagnosis: Secondary (5) Encephalopathy acute ICD Code: G93.40 Diagnosis: Secondary (6) Tobacco abuse ICD Code: Z72.0 Diagnosis: Secondary (7) Leukocytosis ICD Code: D72.829 (8) Hyperglycemia ICD Code: R73.9 Diagnosis: Secondary (9) Ventricular fibrillation ICD Code: I49.01 Diagnosis: Principal (10) Acute respiratory failure ICD Code: J96.00 Diagnosis: Secondary Brief History 61 yo WM with no significant past medical history who presented to [facility] emergency department following V. fib cardiac arrest. He had been at a karaoke bar when he collapsed. It is unclear whether bystander CPR was initiated. 911 was contacted and [facility] arrived within 5-10 minutes. He was in V. fib. He was defibrillated 4, received 6 amps of epi, amiodarone 2 doses, 100 Meq of bicarbonate. Intubated by [facility]. He had ROSC. He lost pulses shortly after arrival to the emergency department. He received epi x7, 1 g Calcium chloride, 2 gram magnesium, 1 amp bicarb, 6 epi and was defibrillated x5 with ROSC. He was started on levophed for shock and amiodarone drip. Since initiation of amiodarone drip, he was been in sinus rhythm with pulse.. On levophed 7.5 mcg/min with MAP in 70s. He has been sedated with fentanyl 50 mcg/hr and Versed 3 mg/hr but when this is held he is localizing with BUE, spontaneously moving legs, has reactive pupils, overbreathing vent, + cough. Daughter states no known cardiac history. Hospital Course Patient was signed over to day shift physician at 6 am on 12/04/16. He had recurrent cardiac arrest and ultimately was pronounced at 0944 on 12/04/16. Shruthi Elizalde MD Jan 11, 2017 01:55
== END 2016-12-04 09:44 | disposition expired ==
LOC: NEPE 23:41 → NEDA 12-04 01:36 → NEDH 12-04 05:40 → HIME 12-04 06:30
PROVIDERS: ADMIT Emergency Medicine; ATTEND Emergency Medicine
PROC: 04HY32Z Insertion of Monitoring Device into Lower Artery, Percutaneous Approach (ICD-10-PCS; principal; 2016-12-04)
PROC: 06HN33Z Insertion of Infusion Device into Left Femoral Vein, Percutaneous Approach (ICD-10-PCS; 2016-12-04)
PROC: 5A12012 Performance of Cardiac Output, Single, Manual (ICD-10-PCS; 2016-12-04)
PROC: 5A2204Z Restoration of Cardiac Rhythm, Single (ICD-10-PCS; 2016-12-04)
PROC: 05HM33Z Insertion of Infusion Device into Right Internal Jugular Vein, Percutaneous Approach (ICD-10-PCS; 2016-12-04)
PROC: 5A1935Z Respiratory Ventilation, Less than 24 Consecutive Hours (ICD-10-PCS; 2016-12-04)
DX: I49.01 Ventricular fibrillation (principal); G93.40 Encephalopathy, unspecified; I21.4 Non-ST elevation (NSTEMI) myocardial infarction; J96.00 Acute respiratory failure, unspecified whether with hypoxia or hypercapnia; N17.9 Acute kidney failure, unspecified; I46.2 Cardiac arrest due to underlying cardiac condition; F12.90 Cannabis use, unspecified, uncomplicated; R57.0 Cardiogenic shock; D72.829 Elevated white blood cell count, unspecified; R73.9 Hyperglycemia, unspecified; R68.0 Hypothermia, not associated with low environmental temperature; Z87.891 Personal history of nicotine dependence
CPT/HCPCS: 36556; 36600; 51702; 70450; 71010; 80048; 80053; 80307; 80320; 80329; 81001; 82550; 82552; 82805; 82948; 83605; 83735; 84100; 84484; 85007; 85027; 85610; 85730; 86850; 86900; 86901; 87040; 87086; 92950; 93005; 93306; 94002; 94003; C9113; G0480; J0171; J0282; J0692; J1644; J1815; J2175; J2250; J3010; J3370; J3475; J7030; J7050; J7060